=== PATIENT | female | born 1980 | race African-American/Black ===

== ENCOUNTER 2017-11-05 19:42 | Emergency (ER) | payer OTHER | END 2017-11-05 20:45 | disposition home or self-care (01) | LOC: ER 19:42 | DX: S40.861A Insect bite (nonvenomous) of right upper arm, initial encounter (principal); W57.XXXA Bitten or stung by nonvenomous insect and other nonvenomous arthropods, initial encounter; Y93.89 Activity, other specified; Y99.8 Other external cause status; Y92.89 Other specified places as the place of occurrence of the external cause | CPT/HCPCS: 99283 ==

== ENCOUNTER 2018-01-08 17:31 | Emergency (ER) | payer OTHER | END 2018-01-08 18:10 | disposition home or self-care (01) | LOC: ER 17:31 | DX: J06.9 Acute upper respiratory infection, unspecified (principal) | CPT/HCPCS: 99283 ==

== ENCOUNTER 2019-01-13 17:15 | Emergency (ER) | payer OTHER ==
[~2019-01-13] VITALS: Ht 175.3 cm; Wt 99.8 kg
[~2019-01-13 17:15] MED LIST: AZIT250T PO; METH4TAB2 PO
[2019-01-13 17:19] VITALS: BP 135/76
[2019-01-13] MEDS ORDERED: IBUPROFEN 400 MG TABLET. PO ONE (18:00)
[2019-01-13] MEDS ORDERED: ACETAMINOPHEN 500 MG TABLET PO ONE (18:00)
[2019-01-13 18:47] LABS: INFLUENZA A PATIENT NEGATIVE (NEGATIVE); INFLUENZA B PATIENT NEGATIVE (NEGATIVE)
--- NOTE | 2019-01-13 19:39 | PHYS DOC ---
Past Medical History Past Medical History: No Pertinent History Past Surgical History: Tonsillectomy Alcohol Use: Rarely Drug Use: None Adult General Chief Complaint Chief Complaint: FLU SYMPTOM HPI HPI Patient is a 38 year old female who presents with fever, body aches, chills, cough, nasal congestion, symptoms began 6 days ago. Patient works in assisted living facility. Review of Systems Review of Systems Constitutional: Reports fever, chills, bodyaches Eyes: Denies change in visual acuity, redness, or eye pain [] HENT: Denies nasal congestion or sore throat [] Respiratory: Reports cough, denies shortness of breath [] Cardiovascular: No additional information not addressed in HPI [] GI: Denies abdominal pain, nausea, vomiting, bloody stools or diarrhea [] : Denies dysuria or hematuria [] Musculoskeletal: Denies back pain or joint pain [] Integument: Denies rash or skin lesions [] Neurologic: Denies headache, focal weakness or sensory changes [] All other systems were reviewed and found to be within normal limits, except as documented in this note. Current Medications Current Medications Current Medications Medications (Trade) Dose Ordered Sig/[facility] Start Time Stop Time Status Last Admin Dose Admin Acetaminophen (Tylenol) 1,000 mg 1X ONCE 01/13/19 18:00 01/13/19 18:01 DC 01/13/19 17:53 1,000 MG Ibuprofen (Motrin) 800 mg 1X ONCE 01/13/19 18:00 01/13/19 18:01 DC 01/13/19 17:53 800 MG Allergies Allergies Allergies Coded Allergies Type Severity Reaction Last Updated Verified No Known Drug Allergies 01/08/18 No Physical Exam Physical Exam Constitutional: Well developed, well nourished, no acute distress, non-toxic appearance. [] HENT: Normocephalic, atraumatic, bilateral external ears normal, oropharynx moist, no oral exudates, nose normal. [] Eyes: PERRLA, EOMI, conjunctiva normal, no discharge. [] Neck: Normal range of motion, no tenderness, supple, no stridor. [] Cardiovascular:Heart rate regular rhythm, no murmur [] Lungs & Thorax: Bilateral breath sounds clear to auscultation [] Abdomen: Bowel sounds normal, soft, no tenderness, no masses, no pulsatile masses. [] Skin: Warm, dry, no erythema, no rash. [] Back: No tenderness, no CVA tenderness. [] Extremities: No tenderness, no cyanosis, no clubbing, ROM intact, no edema. [] Neurologic: Alert and oriented X 3, normal motor function, normal sensory function, no focal deficits noted. [] Psychologic: Affect normal, judgement normal, mood normal. [] Current Patient Data Vital Signs Vital Signs Date Time Temp Pulse Resp B/P (MAP) Pulse Ox O2 Delivery O2 Flow Rate FiO2 01/13/19 17:19 100.0 105 18 135/76 (95) 97 Room Air 100.0 Lab Values Laboratory Tests Test 01/13/19 17:25 Influenza Type A Antigen Negative (NEGATIVE) Influenza Type B Antigen Negative (NEGATIVE) EKG EKG [] Radiology/Procedures Radiology/Procedures [] Course & Med Decision Making Course & Med Decision Making Pertinent Labs and Imaging studies reviewed. (See chart for details) This is a 38-year-old female patient presented to the ED today with flulike symptoms including fever body aches chills cough, symptoms for 6 days, temperature 100.0 9 arrival to the ED. Chest x-ray is negative, negative for influenza A or B. Symptoms are likely viral. She's been sick for more than 2 days, provided supportive care measures. Follow-up with primary care doctor in 1 -2 weeks. Dragon Disclaimer Dragon Disclaimer This electronic medical record was generated, in whole or in part, using a voice recognition dictation system. Departure Departure Impression: Primary Impression: Viral illness Additional Impression: Fever Disposition: 01 HOME, SELF-CARE Condition: STABLE Referrals: NO PCP (PCP) Follow-up with your doctor in 1-2 weeks Patient Instructions: Fever, Adult, [id number], Upper Respiratory Infection, Adult, [id number] Additional Instructions: You were evaluated in the emergency room for flulike symptoms. Please push fluids, rest, maintain good, take Tylenol every hours and Motrin every 6 follow- up with your doctor in 1-2 weeks. Problem Qualifiers Additional Impression: Fever Fever type: unspecified Qualified Codes: R50.9 - Fever, unspecified RACHEL GUZMÁN DENNY Jan 13, 2019 19:39
--- NOTE | 2019-01-14 08:16 | RAD ---
EXAM: PA and lateral views of the chest DATE: 01/13/2019 5:55 PM INDICATION: CHILLS, SOA, COUGH FEVER X5 DAYS COMPARISON: No Prior FINDINGS: Heart is not enlarged. Mediastinal and hilar contours are normal. Focal nodularity in the left infrahilar lung measures approximately 1.2 x 0.7 cm. In addition a 1 cm right suprahilar lung nodule is seen. Although this may be related to focal atelectasis or summation artifact, lung nodules are not excluded and further evaluation with CT is recommended. No pleural effusion or pneumothorax. IMPRESSION: Bilateral nodular opacities, for which further evaluation with CT is recommended to exclude underlying mass. No lobar consolidation. No pleural effusion. No pulmonary edema. Electronically signed by: David Welch MD (01/14/2019 8:12 AM) [id number]
== END 2019-01-13 19:43 | disposition home or self-care (01) ==
LOC: ER 17:15
DX: B33.8 Other specified viral diseases (principal); R05 Cough; R09.81 Nasal congestion; M79.18 Myalgia, other site; R50.9 Fever, unspecified; Z90.89 Acquired absence of other organs
CPT/HCPCS: 71046; 87804; 99284-25